=== PATIENT | female | born 2000 | race Hispanic/Latino ===

== ENCOUNTER 2021-06-07 09:41 | Outpatient (CLI) | payer OTHER | END 2021-06-07 09:42 | disposition home or self-care (01) | LOC: CSHULT 09:41 | PROVIDERS: ATTEND Advanced Practice Midwife | DX: N63.20 Unspecified lump in the left breast, unspecified quadrant (principal) ==

== ENCOUNTER 2021-12-05 14:04 | Inpatient (IN) | payer OTHER ==
[~2021-12-05 14:04] MED LIST: Bupivacaine 0.25% HCL 30 ML VIAL ONE
[2021-12-05] MEDS ORDERED: hydrALAZINE 20 MG/ML VIAL SLOW IVP PRN ×2 (14:39→15:50)
[2021-12-05 14:49] VITALS: BMI 28.7
[2021-12-05] MEDS ORDERED: Carboprost 250 MCG/ML AMP IM PRN (15:50)
[2021-12-05] MEDS ORDERED: Butorphanol Tartrate 1 MG/ML VIAL SLOW IVP PRN (15:50)
[2021-12-05] MEDS ORDERED: Lidocaine 1% (PF) 30 ML VIAL SC PRN (15:50)
[2021-12-05] MEDS ORDERED: Promethazine HCl 25 MG/ML VIAL IM PRN (15:50)
[2021-12-05] MEDS ORDERED: Misoprostol 200 MCG TAB PR PRN (15:50)
[2021-12-05] MEDS ORDERED: Methylergonovine 0.2 MG/ML VIAL IM PRN (15:50)
[2021-12-05] MEDS ORDERED: Diphenoxylate HCl/Atropine Tablet PO PRN (15:50)
[2021-12-05] MEDS ORDERED: Ondansetron PF 4 MG/2 ML Vial IVP PRN (15:50)
[2021-12-05] MEDS ORDERED: NS w/ Oxytocin 30 units 500 ML IV SCH ×2 (16:00)
[2021-12-05] MEDS ORDERED: Penicillin G Potassium 5 MILL.UNITS in Sodium Chloride 0.9% 100 ML IVPB SCH (16:00)
[2021-12-05 17:57] LABS: Hemoglobin 11.1 g/dL (12.0-15.5); Mean Corpuscular HGB CONC 31.9 g/dL (32.0-36.0); Mean Corpuscular Hemoglobin 24.9 pg (27.0-33.0); Mean Platelet Volume 10.8 fl (7.4-10.4); Platelet Count 234 10x3/uL (150-450); RBC Distribution Width 20.1 % (11.5-14.5); Red Blood Cell (RBC) Count 4.46 10x6/uL (3.90-5.03); White Blood Cell (WBC) Count 7.1 10x3/uL (3.5-10.5)
[2021-12-05] MEDS: Lactated Ringer's 1,000 ML IV SCH (18:13)
[2021-12-05] MEDS: Misoprostol 100 MCG TAB VAG SCH ×2 (18:23→22:23)
[2021-12-05] MEDS ORDERED: Misoprostol 100 MCG TAB PO SCH (18:30)
[2021-12-05 18:40] LABS: Hep B Surf Ag Non-Reactive S/CO (NonReactive)
[2021-12-05 18:41] LABS: SARS-CoV-2 NAA Rapid Test Not Detected (NotDetected)
[2021-12-05 18:41] LABS: Syphilis Antibody Nonreactive (Nonreactive); Syphilis Antibody Index 0.17 S/CO (<1.00 Non-Reactive)
[2021-12-05] MEDS ORDERED: Penicillin G Potassium 5 MILL.UNITS VIAL ONE (22:24)
[2021-12-06] MEDS: Penicillin G 2.5 MILL.units 2.5 MILL.UNITS in Premix Bag 1 BAG IVPB SCH ×3 (00:46→20:32)
[2021-12-06] MEDS: Misoprostol 100 MCG TAB VAG SCH ×2 (00:46→20:31)
[2021-12-06] MEDS ORDERED: Fentanyl 2 mcg/Bup 0.1% Cadd 100 ML ONE (07:08)
[2021-12-06] MEDS ORDERED: Lactated Ringer's 500 ML IV PRN (09:24)
[2021-12-06] MEDS ORDERED: diphenhydrAMINE 50 MG/ML VIAL IVP PRN (09:24)
[2021-12-06] MEDS ORDERED: Ondansetron PF 4 MG/2 ML Vial IVP PRN ×2 (09:24→15:36)
[2021-12-06] MEDS ORDERED: Moisturizing Cream (Eucerin) 113 GM JAR TOP PRN (09:24)
[2021-12-06] MEDS ORDERED: Naloxone HCl 0.4 mg/ml Vial IVP PRN ×2 (09:24)
[2021-12-06] MEDS ORDERED: Acetaminophen 325 MG TAB PO PRN (09:24)
[2021-12-06] MEDS ORDERED: Promethazine HCl 25 MG/ML VIAL IM PRN (09:24)
[2021-12-06] MEDS ORDERED: ePHEDrine Sulfate 50 MG/10 ML VIAL SLOW IVP PRN (09:24)
[2021-12-06] MEDS ORDERED: Fentanyl 2 mcg/Bupivacaine 0.1% Cassette 100 ML EPIDURAL SCH (09:30)
[2021-12-06] MEDS ORDERED: Communication Order-Pharmacy FS SCH (09:30)
[2021-12-06] MEDS ORDERED: Misoprostol 200 MCG TAB ONE (13:33)
[2021-12-06] MEDS ORDERED: Methylergonovine 0.2 MG/ML VIAL ONE (13:34)
[2021-12-06] MEDS ORDERED: Lanolin Ointment 7 GM TUBE TOP PRN (15:36)
[2021-12-06] MEDS ORDERED: Bisacodyl 10 MG SUPP PR PRN (15:36)
[2021-12-06] MEDS ORDERED: HYDROcodone/Acetaminophen 5/325 mg Tablet PO PRN ×2 (15:36)
[2021-12-06] MEDS ORDERED: Methylergonovine 0.2 MG/ML VIAL IM PRN (15:36)
[2021-12-06] MEDS ORDERED: Milk Of Magnesia 30 ML UDCUP PO PRN (15:36)
[2021-12-06] MEDS ORDERED: Misoprostol 200 MCG TAB VAG PRN (15:36)
[2021-12-06] MEDS ORDERED: hydrALAZINE 20 MG/ML VIAL SLOW IVP PRN (15:36)
[2021-12-06] MEDS ORDERED: NS w/ Oxytocin 30 units 500 ML IV SCH (15:36)
[2021-12-06] MEDS ORDERED: NS w/ Oxytocin 30 units 500 ML ONE (15:45)
[2021-12-06] MEDS: Ibuprofen 800 MG TAB PO SCH ×2 (16:32→21:04)
[2021-12-06] MEDS: Ferrous Sulfate 325 MG TAB PO SCH (16:32)
[2021-12-06] MEDS: Lactated Ringer's 1,000 ML IV SCH (20:31)
[2021-12-06] MEDS: Docusate 100 MG CAP PO SCH (21:04)
[2021-12-06] MEDS ORDERED: Benzocaine-Menthol 82.5 ML CAN TOP PRN (21:26)
[2021-12-07] MEDS: Ibuprofen 800 MG TAB PO SCH ×3 (03:25→13:13)
[2021-12-07] MEDS: Docusate 100 MG CAP PO SCH (08:37)
[2021-12-07] MEDS: Ferrous Sulfate 325 MG TAB PO SCH (08:37)
[2021-12-07] MEDS ORDERED: Prenatal Vitamin 1 TAB PO SCH (09:00)
[2021-12-07 11:05] VITALS: BP 90/54; TEMP 97.9
== END 2021-12-07 16:30 | disposition home or self-care (01) | DRG 806 ==
LOC: CSHLD/OP 14:04 → CSHLD 19:23 → CSHPED 12-06 16:04
PROVIDERS: ADMIT Obstetrics & Gynecology; ATTEND Obstetrics & Gynecology
PROC: 10E0XZZ Delivery of Products of Conception, External Approach (ICD-10-PCS; principal; 2021-12-06)
DX: O36.8130 Decreased fetal movements, third trimester, not applicable or unspecified (principal); O41.03X0 Oligohydramnios, third trimester, not applicable or unspecified; Z37.0 Single live birth; Z3A.37 37 weeks gestation of pregnancy; Z20.822 Contact with and (suspected) exposure to COVID-19; O99.824 Streptococcus B carrier state complicating childbirth; J45.909 Unspecified asthma, uncomplicated; O99.52 Diseases of the respiratory system complicating childbirth; D64.9 Anemia, unspecified; O99.02 Anemia complicating childbirth; Z79.899 Other long term (current) drug therapy; O76 Abnormality in fetal heart rate and rhythm complicating labor and delivery; O69.2XX0 Labor and delivery complicated by other cord entanglement, with compression, not applicable or unspecified
CPT/HCPCS: 51702; 76819; 85027; 86780; 86850; 86900; 86901; 87340; 99285; J0595; J2540; J3490; S0020; U0002

== ENCOUNTER 2023-02-03 10:56 | Day surgery (SDC) | payer OTHER ==
[2023-02-03 11:29] VITALS: BMI 29.8
[2023-02-03] MEDS ORDERED: hydrALAZINE 20 MG/ML VIAL SLOW IVP PRN (11:41)
== END 2023-02-03 13:55 | disposition home or self-care (01) ==
LOC: CSHLD/OP 10:56
PROVIDERS: ATTEND Obstetrics & Gynecology
DX: O36.8130 Decreased fetal movements, third trimester, not applicable or unspecified (principal); Z3A.37 37 weeks gestation of pregnancy

== ENCOUNTER 2023-02-20 19:00 | Inpatient (IN) | payer OTHER ==
[2023-02-21] MEDS ORDERED: Ondansetron PF 4 MG/2 ML Vial IVP PRN ×2 (04:04→11:17)
[2023-02-21] MEDS ORDERED: HYDROcodone/Acetaminophen 5/325 mg Tablet PO PRN (04:04)
[2023-02-21] MEDS ORDERED: Ibuprofen 800 MG TAB PO PRN (04:04)
[2023-02-21] MEDS ORDERED: Misoprostol 200 MCG TAB PR PRN (04:04)
[2023-02-21] MEDS ORDERED: Zolpidem Tartrate 5 MG TAB PO PRN (04:04)
[2023-02-21] MEDS ORDERED: Methylergonovine 0.2 MG/ML VIAL IM PRN (04:04)
[2023-02-21] MEDS ORDERED: fentaNYL 50 mcg/mL 1 mL Vial SLOW IVP PRN (04:04)
[2023-02-21] MEDS ORDERED: Promethazine HCl 25 MG/ML VIAL IM PRN ×2 (04:04→11:17)
[2023-02-21] MEDS ORDERED: Diphenoxylate HCl/Atropine Tablet PO PRN ×2 (04:04)
[2023-02-21] MEDS ORDERED: Acetaminophen 500 MG TAB PO PRN (04:04)
[2023-02-21] MEDS ORDERED: hydrALAZINE 20 MG/ML VIAL SLOW IVP PRN ×2 (04:04→13:25)
[2023-02-21] MEDS ORDERED: Lactated Ringer's 1,000 ML IV SCH (04:04)
[2023-02-21] MEDS ORDERED: Oxytocin 30 units/NS 500 ML 500 ML IV SCH ×2 (04:04)
[2023-02-21] MEDS ORDERED: Lidocaine 1% (PF) 30 ML VIAL SC PRN (04:04)
[2023-02-21] MEDS ORDERED: Carboprost 250 MCG/ML AMP IM PRN (04:04)
[2023-02-21 04:05] VITALS: BMI 29.8
[2023-02-21 04:42] LABS: Hematocrit 29.6 % (34.9-44.5); Hemoglobin 8.7 g/dL (12.0-15.5); Mean Corpuscular HGB CONC 29.4 g/dL (32.0-36.0); Mean Corpuscular Hemoglobin 20.1 pg (27.0-33.0); Mean Corpuscular Volume 68.5 fl (81.6-98.3); Mean Platelet Volume 10.7 fl (7.4-10.4); Platelet Count 333 10x3/uL (150-450); RBC Distribution Width 17.4 % (11.5-14.5); Red Blood Cell (RBC) Count 4.32 10x6/uL (3.90-5.03)
[2023-02-21 05:10] LABS: Syphilis Antibody Nonreactive (Nonreactive); Syphilis Antibody Index 0.28 S/CO (<1.00 Non-Reactive)
[2023-02-21 05:11] LABS: HBSAg Index 0.14 S/CO (0-0.99); Hep B Surf Ag - L&D Non-Reactive S/CO (NonReactive)
[2023-02-21] MEDS ORDERED: Misoprostol 100 MCG TAB VAG SCH (06:00)
[2023-02-21] MEDS ORDERED: fentaNYL/Ropivacaine Epidural 100 ML ONE (09:07)
[2023-02-21] MEDS ORDERED: Acetaminophen 325 MG TAB PO PRN (11:17)
[2023-02-21] MEDS ORDERED: ePHEDrine Sulfate 50 MG/10 ML VIAL SLOW IVP PRN (11:17)
[2023-02-21] MEDS ORDERED: Moisturizing Cream (Eucerin) 113 GM JAR TOP PRN (11:17)
[2023-02-21] MEDS ORDERED: Lactated Ringer's 500 ML IV PRN (11:17)
[2023-02-21] MEDS ORDERED: diphenhydrAMINE 50 MG/ML VIAL IVP PRN (11:17)
[2023-02-21] MEDS ORDERED: Naloxone HCl 0.4 mg/ml Vial IVP PRN ×2 (11:17)
[2023-02-21] MEDS ORDERED: Communication Order-Pharmacy FS SCH (11:30)
[2023-02-21] MEDS ORDERED: fentaNYL 2 mcg/Ropivacaine 0.2% Epidural 100 ML CADD EPIDURAL SCH (11:30)
[2023-02-21] MEDS ORDERED: diphenhydrAMINE 25 MG CAP PO PRN (13:25)
[2023-02-21] MEDS ORDERED: Boostrix 0.5 ML (Tdap) VIAL (>/=7 yrs of age) IM ONE (13:25)
[2023-02-21] MEDS ORDERED: Benzocaine-Menthol 82.5 ML CAN TOP PRN (13:25)
[2023-02-21] MEDS ORDERED: Preparation H Ointment 28 GM TUBE PR PRN (13:25)
[2023-02-21] MEDS ORDERED: Milk Of Magnesia 30 ML UDCUP PO PRN (13:25)
[2023-02-21] MEDS ORDERED: Bisacodyl 10 MG SUPP PR PRN (13:25)
[2023-02-21] MEDS ORDERED: Lanolin Ointment 7 GM TUBE TOP PRN (13:25)
[2023-02-21] MEDS ORDERED: traMADol HCl 50 MG TAB PO PRN (13:25)
[2023-02-21] MEDS ORDERED: Bupivacaine 0.25% HCL 30 ML VIAL ONE (19:05)
[2023-02-21] MEDS: Ibuprofen 800 MG TAB PO SCH ×2 (21:37)
[2023-02-21] MEDS: Docusate 100 MG CAP PO SCH (21:38)
[2023-02-22] MEDS: Ibuprofen 800 MG TAB PO SCH ×2 (05:22→15:05)
[2023-02-22] MEDS: Ferrous Sulfate 325 MG TAB PO SCH ×2 (07:37→08:18)
[2023-02-22] MEDS: Docusate 100 MG CAP PO SCH (08:18)
[2023-02-22] MEDS ORDERED: Prenatal Vitamin 1 TAB PO SCH (09:00)
[2023-02-22 11:56] VITALS: BP 103/63; TEMP 97.9
== END 2023-02-22 16:15 | disposition home or self-care (01) | DRG 807 ==
LOC: CSHLD 02-21 03:25 → CSHPP 02-21 19:30
PROVIDERS: ADMIT Obstetrics & Gynecology; ATTEND Obstetrics & Gynecology
PROC: 10E0XZZ Delivery of Products of Conception, External Approach (ICD-10-PCS; principal; 2023-02-21)
PROC: 3E033XZ Introduction of Vasopressor into Peripheral Vein, Percutaneous Approach (ICD-10-PCS; 2023-02-21)
DX: O48.0 Post-term pregnancy (principal); Z37.0 Single live birth; Z3A.40 40 weeks gestation of pregnancy
CPT/HCPCS: 36415; 51702; 85027; 86780; 86850; 86900; 86901; 87340; S0020

== ENCOUNTER 2025-02-12 01:00 | Inpatient (IN) | payer MEDICAID ==
[2025-02-12] MEDS ORDERED: Oxytocin 30 units/NS 500 ML 500 ML IV SCH ×3 (06:00→17:30)
[2025-02-12] MEDS ORDERED: Acetaminophen 500 MG TAB PO PRN (06:00)
[2025-02-12] MEDS ORDERED: Carboprost 250 MCG/ML AMP IM PRN (06:00)
[2025-02-12] MEDS ORDERED: Tranexamic Acid 1,000 MG/10 ML VIAL IVP PRN (06:00)
[2025-02-12] MEDS ORDERED: Methylergonovine 0.2 MG/ML VIAL IM PRN ×2 (06:00→17:17)
[2025-02-12] MEDS ORDERED: Diphenoxylate HCl/Atropine Tablet PO PRN ×2 (06:00)
[2025-02-12] MEDS ORDERED: Ibuprofen 800 MG TAB PO PRN (06:00)
[2025-02-12] MEDS ORDERED: hydrALAZINE 20 MG/ML VIAL SLOW IVP PRN ×2 (06:00→17:17)
[2025-02-12] MEDS ORDERED: Lidocaine 1% (PF) 30 ML VIAL SC PRN (06:00)
[2025-02-12 06:49] LABS: Hematocrit 37.4 % (34.9-44.5); Hemoglobin 11.3 g/dL (12.0-15.5); Mean Corpuscular Hemoglobin 22.9 pg (27.0-33.0); Mean Corpuscular Volume 75.9 fL (81.6-98.3); Platelet Count 313 10x3/uL (150-450); Red Blood Cell (RBC) Count 4.93 10x6/uL (3.90-5.03); White Blood Cell (WBC) Count 9.38 10x3/uL (3.5-10.5)
[2025-02-12 07:03] LABS: HIV (1/2) Antibody/Antigen Non-Reactive (NonReactive); HIV 1/2 INDEX 0.16 S/CO (<1.00)
[2025-02-12 07:14] VITALS: BMI 28.9
[2025-02-12 07:49] LABS: Hep B Surf Ag - L&D Non-Reactive S/CO (NonReactive)
[2025-02-12 07:51] LABS: Syphilis Antibody Index 0.16 S/CO (<1.00 Non-Reactive)
[2025-02-12] MEDS ORDERED: Bupivacaine 0.25% HCL 30 ML VIAL ONE (08:00)
[2025-02-12] MEDS: Oxytocin 30 units/NS 500 ML 500 ML IV SCH (08:29)
[2025-02-12] MEDS: fentaNYL/Ropivacaine Epidural 100 ML ONE (12:05)
[2025-02-12] MEDS ORDERED: diphenhydrAMINE 50 MG/ML VIAL IVP PRN (12:35)
[2025-02-12] MEDS ORDERED: Ondansetron PF 4 MG/2 ML Vial IVP PRN ×2 (12:35→17:17)
[2025-02-12] MEDS ORDERED: fentaNYL 2 mcg/Ropivacaine 0.2% Epidural 100 ML CADD EPIDURAL SCH (12:45)
[2025-02-12] MEDS ORDERED: Communication Order-Pharmacy FS SCH (12:45)
[2025-02-12] MEDS: Ondansetron PF 4 MG/2 ML Vial IVP PRN (16:28)
[2025-02-12] MEDS ORDERED: Milk Of Magnesia 30 ML UDCUP PO PRN (17:17)
[2025-02-12] MEDS ORDERED: Bisacodyl 10 MG SUPP PR PRN (17:17)
[2025-02-12] MEDS ORDERED: Benzocaine-Menthol 82.5 ML CAN TOP PRN (17:17)
[2025-02-12] MEDS ORDERED: Boostrix 0.5 ML (Tdap) VIAL (>/=7 yrs of age) IM ONE (17:17)
[2025-02-12] MEDS ORDERED: Lanolin Ointment 7 GM TUBE TOP PRN (17:17)
[2025-02-13] MEDS: Ibuprofen 800 MG TAB PO SCH (01:04)
[2025-02-13] MEDS: Ferrous Sulfate 325 MG TAB PO SCH (08:18)
[2025-02-13] MEDS: Acetaminophen 325 MG TAB PO PRN (08:19)
[2025-02-13 16:59] VITALS: BP 114/67; TEMP 98.1
== END 2025-02-13 17:20 | disposition home or self-care (01) | DRG 807 ==
LOC: CSHLD 01:35 → CSHPP 19:31
PROVIDERS: ADMIT Family Medicine; ATTEND Family Medicine
PROC: 10E0XZZ Delivery of Products of Conception, External Approach (ICD-10-PCS; principal; 2025-02-12)
PROC: 10907ZC Drainage of Amniotic Fluid, Therapeutic from Products of Conception, Via Natural or Artificial Opening (ICD-10-PCS; 2025-02-12)
PROC: 10H07YZ Insertion of Other Device into Products of Conception, Via Natural or Artificial Opening (ICD-10-PCS; 2025-02-12)
DX: O99.02 Anemia complicating childbirth (principal); Z37.0 Single live birth; D64.9 Anemia, unspecified; O70.0 First degree perineal laceration during delivery; Z3A.39 39 weeks gestation of pregnancy; O69.81X0 Labor and delivery complicated by cord around neck, without compression, not applicable or unspecified; O76 Abnormality in fetal heart rate and rhythm complicating labor and delivery
CPT/HCPCS: 51702; 85027; 86780; 86850; 86900; 86901; 87340; 87389; J0665; J2405; J2590; J7120